=== PATIENT | male | born 1985 | race African-American/Black ===

== ENCOUNTER 2016-11-01 19:12 | Inpatient (IN) | payer MEDICAID, OTHER, SELFPAY ==
[~2016-11-01] VITALS: Ht 185.4 cm; Wt 168.3 kg
[2016-11-01] MEDS ORDERED: CLAR10TA13 PO (19:42)
[2016-11-01] MEDS ORDERED: SUDA30TA PO (19:42)
[2016-11-01] MEDS ORDERED: ONDANSETRON 4MG/2ML VIAL (J2405) IV ONE (20:15)
[2016-11-01] MEDS ORDERED: PANTOPRAZOLE 40MG INJ (PROTONIX) (C9113) IV ONE (20:15)
[2016-11-01] MEDS ORDERED: GASTROGRAFIN SOLUTION 30ML PO ONE (20:30)
[2016-11-01 20:34] LABS: BASO # 0.2 K/mm3 (0.0-0.2); EOS % 6.3 % (0.0-3.0); LARGE UNSTAINED CELL # 0.5 K/mm3 (0.0-0.4); LYMPH # 4.1 K/mm3 (1.5-4.5); MEAN CORPUSCULAR HEMOGLOBIN 28.2 pg (27.0-33.0); MEAN CORPUSCULAR HGB CONC 33.8 g/dl (32.0-36.5); MEAN CORPUSCULAR VOLUME 83.4 fl (80.0-96.0); MONO # 0.8 K/mm3 (0.0-0.8); MONO % 5.4 % (0.0-5.0); NEUTROPHILS # 9.6 K/mm3 (1.8-7.7); NEUTROPHILS % 61.4 % (36.0-66.0); PLATELET COUNT, AUTOMATED 481 k/mm3 (150-450); RED CELL DISTRIBUTION WIDTH 12.4 % (11.5-14.5); WHITE BLOOD COUNT 15.6 K/mm3 (4.0-10.0)
[2016-11-01 20:56] LABS: ALBUMIN 3.8 GM/DL (3.2-5.2); ALBUMIN/GLOBULIN RATIO 0.84 (1.00-1.93); ALKALINE PHOSPHATASE 53 U/L (45-117); ALT/SGPT 47 U/L (12-78); ANION GAP 4 MEQ/L (8-16); AST/SGOT 15 U/L (15-37); BILIRUBIN,DIRECT 0.1 MG/DL (0.0-0.2); BILIRUBIN,TOTAL 0.4 MG/DL (0.2-1.0); BLOOD UREA NITROGEN 7 MG/DL (7-18); CALCIUM LEVEL 9.3 MG/DL (8.5-10.1); CARBON DIOXIDE LEVEL 34 MEQ/L (21-32); CHLORIDE LEVEL 100 MEQ/L (98-107); CREATININE FOR GFR 1.02 MG/DL (0.70-1.30); GLOMERULAR FILTRATION RATE > 60.0 (>60); GLUCOSE, FASTING 86 MG/DL (70-105); POTASSIUM SERUM 4.1 MEQ/L (3.5-5.1); SODIUM LEVEL 138 MEQ/L (136-145); TOTAL PROTEIN 8.3 GM/DL (6.4-8.2)
[2016-11-01] MEDS ORDERED: GASTROGRAFIN SOLUTION 30ML (Q9963) PO ONE (21:00)
[2016-11-01] MEDS ORDERED: ISOVUE-370 76% 100ML VIAL (Q9967) As Ordered ONE (22:01)
[2016-11-01] MEDS ORDERED: metroNIDAZOLE 500 MG in APPROPRIATE DILUENT 1 EA IV ONE (23:15)
[2016-11-01] MEDS ORDERED: CIPROFLOXACIN 400 MG in APPROPRIATE DILUENT 1 EA IV ONE (23:15)
--- NOTE | 2016-11-01 23:30 | REPUSA ---
CLINICAL HISTORY: Rule out diverticulitis. TECHNIQUE: Multiple axial CT images were obtained through the abdomen and pelvis after administratio n of intravenous contrast material. COMMENTS: Liver is enlarged with diffuse hypoattenuation compatible with patchy infiltration. There is no intr a or extrahepatic biliary ductal dilatation. The spleen is normal. Gallbladder is contracted. The pancreas is of normal contour and attenuation characteristics. There is no evidence of adrenal mass. Both kidneys demonstrate prompt and equal nephrograms. The kidneys are normal in size, shape and con figuration. There is no evidence of renal or ureteral mass. No renal or ureteral calculi are identi fied. There is no hydroureter or hydronephrosis. Note is made of there are scattered sigmoid diverticula present. There is severe inflammatory strand ing noted adjacent to mid sigmoid, most compatible with acute diverticulitis. There are several smal l bouts of free air noted in the vicinity with apparent phlegmon formation. There is asymmetric nodu lar wall thickening of the sigmoid colon. No evidence for appendicitis. No evidence for small or large bowel obstruction. There is no evidenc e of abdominal ascites or lymphadenopathy. There is no evidence of intrinsic or extrinsic bladder mass. There is no pelvic ascites or lymphaden opathy. Images of the lung bases show no evidence of pleural or parenchymal mass. There are no pleural effus ions. The bony structures are free of lytic or blastic lesions. IMPRESSION: 1. Fatty liver. 2. Acute sigmoid diverticulitis. There are several small bubbles of free air noted in the vicinity with apparent phlegmon formation. There is asymmetric nodular wall thickening of the sigmoid colon. Followup is recommended with CT or colonoscopy after acute phase of inflammation. Thank you for your kind referral of this patient. We appreciate the opportunity to participate in th is patient's care.
[2016-11-01] MEDS ORDERED: CLAR10CA3 PO (23:44)
[2016-11-01] MEDS ORDERED: SUDA1TAB3 PO (23:44)
[2016-11-01] MEDS ORDERED: VISI0.054 OU (23:44)
[2016-11-02 00:30] VITALS: BP 151/67
[2016-11-02] MEDS ORDERED: MORPHINE 2 MG/ML 1ML SYRINGE IV PRN (00:45)
[2016-11-02] MEDS ORDERED: LR 1,000 ML IV SCH (00:45)
[2016-11-02 04:00] VITALS: BP 126/60
[2016-11-02 06:49] LABS: MEAN CORPUSCULAR HEMOGLOBIN 27.6 pg (27.0-33.0); MEAN CORPUSCULAR HGB CONC 32.7 g/dl (32.0-36.5); MEAN CORPUSCULAR VOLUME 84.6 fl (80.0-96.0); RED CELL DISTRIBUTION WIDTH 12.3 % (11.5-14.5)
[2016-11-02 07:02] LABS: ANION GAP 5 MEQ/L (8-16); BLOOD UREA NITROGEN 6 MG/DL (7-18); CALCIUM LEVEL 8.7 MG/DL (8.5-10.1); CARBON DIOXIDE LEVEL 32 MEQ/L (21-32); CHLORIDE LEVEL 101 MEQ/L (98-107); CREATININE FOR GFR 1.02 MG/DL (0.70-1.30); GLOMERULAR FILTRATION RATE > 60.0 (>60); GLUCOSE, FASTING 105 MG/DL (70-105); POTASSIUM SERUM 3.9 MEQ/L (3.5-5.1); SODIUM LEVEL 138 MEQ/L (136-145)
[2016-11-02] MEDS: metroNIDAZOLE 500 MG in APPROPRIATE DILUENT 1 EA IV SCH ×3 (07:32→23:54)
[2016-11-02 08:00] VITALS: BP 136/68
[2016-11-02] MEDS: MORPHINE 4 MG/ML 1ML SYRINGE IV PRN ×2 (09:17→18:44)
[2016-11-02] MEDS ORDERED: TETRAHYDROZOLINE OPHTH 0.05% 15 ML BTL OU PRN (09:45)
[2016-11-02] MEDS: LORATADINE 10 MG TAB PO SCH (09:59)
[2016-11-02] MEDS: CIPROFLOXACIN 400 MG in APPROPRIATE DILUENT 1 EA IV SCH ×2 (10:00→22:55)
[2016-11-02 12:00] VITALS: BP 131/62
[2016-11-02 16:00] VITALS: BP 137/72
[2016-11-02 20:00] VITALS: BP 133/72
[2016-11-03] VITALS: BP 137/66
[2016-11-03] MEDS: MORPHINE 4 MG/ML 1ML SYRINGE IV PRN (03:16)
[2016-11-03 04:00] VITALS: BP 150/78
[2016-11-03 07:28] LABS: MEAN CORPUSCULAR HGB CONC 32.7 g/dl (32.0-36.5); MEAN CORPUSCULAR VOLUME 85.4 fl (80.0-96.0); RED CELL DISTRIBUTION WIDTH 12.2 % (11.5-14.5); WHITE BLOOD COUNT 17.2 K/mm3 (4.0-10.0)
[2016-11-03 07:32] LABS: ANION GAP 9 MEQ/L (8-16); BLOOD UREA NITROGEN 5 MG/DL (7-18); CARBON DIOXIDE LEVEL 31 MEQ/L (21-32); CHLORIDE LEVEL 97 MEQ/L (98-107); CREATININE FOR GFR 0.95 MG/DL (0.70-1.30); GLOMERULAR FILTRATION RATE > 60.0 (>60); GLUCOSE, FASTING 92 MG/DL (70-105); POTASSIUM SERUM 4.4 MEQ/L (3.5-5.1); SODIUM LEVEL 137 MEQ/L (136-145)
[2016-11-03 08:00] VITALS: BP 120/58
[2016-11-03] MEDS: LORATADINE 10 MG TAB PO SCH (08:02)
[2016-11-03] MEDS: metroNIDAZOLE 500 MG in APPROPRIATE DILUENT 1 EA IV SCH ×2 (08:02→16:15)
[2016-11-03] MEDS: CIPROFLOXACIN 400 MG in APPROPRIATE DILUENT 1 EA IV SCH ×2 (11:16→22:58)
[2016-11-03 12:00] VITALS: BP 144/73
[2016-11-03 16:00] VITALS: BP 139/79
[2016-11-03 20:00] VITALS: BP 141/70
[2016-11-04] VITALS: BP 136/75
[2016-11-04] MEDS: metroNIDAZOLE 500 MG in APPROPRIATE DILUENT 1 EA IV SCH ×2 (00:07→08:08)
[2016-11-04 04:00] VITALS: BP 137/67
[2016-11-04 07:00] LABS: MEAN CORPUSCULAR HEMOGLOBIN 27.2 pg (27.0-33.0); MEAN CORPUSCULAR HGB CONC 32.2 g/dl (32.0-36.5); MEAN CORPUSCULAR VOLUME 84.4 fl (80.0-96.0); RED CELL DISTRIBUTION WIDTH 12.2 % (11.5-14.5); WHITE BLOOD COUNT 16.6 K/mm3 (4.0-10.0)
[2016-11-04 07:22] LABS: ANION GAP 7 MEQ/L (8-16); BLOOD UREA NITROGEN 7 MG/DL (7-18); CALCIUM LEVEL 8.8 MG/DL (8.5-10.1); CARBON DIOXIDE LEVEL 29 MEQ/L (21-32); CHLORIDE LEVEL 97 MEQ/L (98-107); CREATININE FOR GFR 0.82 MG/DL (0.70-1.30); GLOMERULAR FILTRATION RATE > 60.0 (>60); GLUCOSE, FASTING 102 MG/DL (70-105); POTASSIUM SERUM 3.4 MEQ/L (3.5-5.1); SODIUM LEVEL 133 MEQ/L (136-145)
[2016-11-04] MEDS ORDERED: POTASSIUM CHLORIDE 10 MEQ SR TABLET PO ONE (08:00)
[2016-11-04] MEDS: LORATADINE 10 MG TAB PO SCH (08:09)
[2016-11-04 08:15] VITALS: BP 136/75
[2016-11-04] MEDS ORDERED: CIPR500T89 PO (08:23)
[2016-11-04] MEDS ORDERED: METR500T10 PO (08:23)
--- NOTE | 2016-11-14 17:24 | DSES ---
DATE OF ADMISSION: 11/01/2016 DATE OF DISCHARGE: 11/04/2016 PRINCIPAL DIAGNOSIS: Diverticulitis. ASSOCIATED DIAGNOSIS: Environmental allergies. BRIEF HISTORY OF PRESENT ILLNESS: The patient is a 31-year-old male who presents with abdominal pain that is quite severe in nature over the last 12-24 hours prior to admission; however, prior to this he did have some gastrointestinal (GI) distress and some irregularity in bowel habits. He does not have a family history of Crohn disease or ulcerative colitis and was evaluated in the emergency room. Showed evidence of probable diverticulitis in the sigmoid colon. HOSPITAL COURSE SUMMARY: The patient was admitted with the above diagnosis, was given IV fluids, IV antibiotics, and his white count gradually improved after having increase in his white count on November 03 but still was elevated at the time of discharge. Clinically, however, he significantly improved. He was not having any fevers at the time of discharge. He was having no pain and was not taking any pain medications at this time. MEDICATIONS AT TIME OF HIS DISCHARGE: Include the following: - Cipro 500 mg by mouth twice a day - Flagyl 500 mg by mouth three times a day - He was to continue on his Claritin, Sudafed, and Visine as needed as an outpatient. He was to followup in my office in 2-3 weeks and to followup in his primary care provider's in 1 week. OBJECTIVE Terra Duffy was acting. Much
--- NOTE | 2016-11-14 22:49 | HPE ---
DATE OF ADMISSION: 11/01/2016 BRIEF HISTORY OF PRESENT ILLNESS The patient presents with abdominal pain that started acutely within the last 12 hours prior to admission. The patient has had no fevers, chills, nausea, vomiting. The patient presented with this severe pain just 24 hours prior to admission. However, he states he has had some ongoing intermittent abdominal discomfort since over a month now and he has also had some mucus within the stools that is been occurring over the last 3-4 days, and some irregularity to his bowels, but the pain itself is new in etiology and presentation. He does not have a family history of ulcerative colitis or Crohn's disease. Has not had any problems with bloody bowel movements or personal history of Crohn's disease. He is not complaining of any fevers or chills at this time. His white count was elevated on admission with a white count of 15.6. PAST MEDICAL HISTORY: His past medical history is significant for history of tubes in his ears when he was a child and history of environmental allergies. PHYSICAL EXAMINATION: GENERAL: Physical exam reveals a 31-year-old male who looks stated age. HEENT: Is unremarkable. NECK: Supple without adenopathy. LUNGS: Clear to auscultation without rales, wheezes or rhonchi. HEART: Regular rate and rhythm. ABDOMEN: Soft, nondistended but he is tender with some guarding and referred rebound to the left lower quadrant and he has some localized peritoneal signs. This mostly in the left lower quadrant and even in the suprapubic area feels some discomfort but not severe. IMPRESSION AND PLAN: The patient has evidence of diverticulitis and no evidence of free perforation. At this time will make him nothing by mouth, intravenous (IV) fluids, IV antibiotics and will see how he does over the first 12-24 hours. We will repeat his laboratory findings and then depending on his clinical course, if he has some improvement, will progress his diet as tolerated. However, if he has some persistent elevated white count, consider CT scan if developing abscess. A CT scan at this time suggests that there may be air outside the lumen of the bowel, but was very difficult to tell at this point whether air with diverticulum or other, but no specific defined abscess is appreciated on the CT scan at this time.
== END 2016-11-04 11:12 | disposition home or self-care (01) | DRG 244 ==
LOC: M ED 20:29 → M ED INP 23:03 → M PED 11-02 00:29
PROVIDERS: ADMIT Surgery; ATTEND Surgery
DX: K57.32 Diverticulitis of large intestine without perforation or abscess without bleeding (principal); J30.9 Allergic rhinitis, unspecified; Z79.899 Other long term (current) drug therapy

== ENCOUNTER → 2020-06-06 | Outpatient (CLI) | payer SELFPAY ==
[~2020-06-06] MED LIST: ACET500T15 PO; AUGM875T28 PO; CIPR-249 PO; CLAR10CA3 PO; CLAR1TAB13 PO; METR-265 PO; SUDA1TAB3 PO; SUDA30TA PO; TESS100C PO; VISI0.054 OU
== END ==
LOC: M LABSMTC 11:09
PROVIDERS: ATTEND Pediatrics
DX: Z20.822 Contact with and (suspected) exposure to COVID-19 (principal)

== ENCOUNTER 2023-03-14 14:30 | Emergency (ER) | payer OTHER, SELFPAY ==
[~2023-03-14] VITALS: Ht 185.4 cm; Wt 129.6 kg
[2023-03-14] MEDS ORDERED: CVS500TA35 PO (14:52)
[2023-03-14] MEDS ORDERED: ORAJ20GE MM (14:53)
[2023-03-14] MEDS ORDERED: AUGMENTIN 875 MG TAB PO ONE (15:05)
[2023-03-14] MEDS ORDERED: LIDOCAINE W/EPINEPHRINE 1% 20ML VIAL SC ONE (15:05)
[2023-03-14] MEDS ORDERED: PERCOCET 5MG/325MG TAB PO ONE (15:30)
[2023-03-14] MEDS ORDERED: PERC5TAB12 PO ×2 (15:33→16:53)
[2023-03-14] MEDS ORDERED: AMOX875T2 PO ×2 (15:33→16:53)
[2023-03-14 16:14] VITALS: BP 180/101; TEMP 98; O2SAT 97
== END 2023-03-14 16:16 | disposition home or self-care (01) ==
LOC: M ED 14:30
DX: K03.81 Cracked tooth (principal); K08.89 Other specified disorders of teeth and supporting structures; J45.909 Unspecified asthma, uncomplicated; K57.92 Diverticulitis of intestine, part unspecified, without perforation or abscess without bleeding